=== PATIENT | female | born 1995 | race Caucasian/White ===

== ENCOUNTER → 2016-10-08 | Outpatient (REF) | payer BC | LOC: M WUC 17:08 | PROVIDERS: ATTEND Physician Assistant | DX: J02.9 Acute pharyngitis, unspecified (principal) ==

== ENCOUNTER → 2016-12-21 | Outpatient (REF) | payer BC ==
[2016-12-21 12:24] LABS: ALKALINE PHOSPHATASE 82 U/L (45-117); ALT/SGPT 19 U/L (12-78); ANION GAP 7 MEQ/L (8-16); AST/SGOT 18 U/L (15-37); BILIRUBIN,TOTAL 0.3 MG/DL (0.2-1.0); BLOOD UREA NITROGEN 15 MG/DL (7-18); CALCIUM LEVEL 8.9 MG/DL (8.5-10.1); CARBON DIOXIDE LEVEL 27 MEQ/L (21-32); CHLORIDE LEVEL 104 MEQ/L (98-107); CHOLESTEROL LEVEL 185 MG/DL (<200); CREATININE FOR GFR 0.74 MG/DL (0.55-1.02); GLOMERULAR FILTRATION RATE > 60.0 (>60); GLUCOSE, FASTING 90 MG/DL (70-105); POTASSIUM SERUM 4.3 MEQ/L (3.5-5.1); SODIUM LEVEL 138 MEQ/L (136-145); TRIGLYCERIDES LEVEL 65 MG/DL (<150)
[2016-12-21 12:25] LABS: ALBUMIN/GLOBULIN RATIO 1.18 (1.00-1.93); TOTAL PROTEIN 7.4 GM/DL (6.4-8.2)
[2016-12-21 12:52] LABS: MEAN CORPUSCULAR HEMOGLOBIN 28.7 pg (27.0-33.0); MEAN CORPUSCULAR HGB CONC 31.9 g/dl (32.0-36.5); MEAN CORPUSCULAR VOLUME 89.9 fl (80.0-96.0); WHITE BLOOD COUNT 6.1 K/mm3 (4.0-10.0)
== END ==
LOC: M SFHCPLAZ 07:39
PROVIDERS: ATTEND Nurse Practitioner Adult Health
DX: Z00.00 Encounter for general adult medical examination without abnormal findings (principal)

== ENCOUNTER → 2019-07-07 | Outpatient (CLI) | payer BC ==
[2019-07-07 15:25] LABS: BASO % 0.3 % (0.0-1.0); EOS # 0.1 10^3/uL (0.0-0.5); HEMATOCRIT 39.3 % (36.0-47.0); HEMOGLOBIN 12.6 g/dl (12.0-15.5); LYMPH # 2.3 10^3/uL (1.5-5.0); LYMPH % 39.5 % (24.0-44.0); MEAN CORPUSCULAR HEMOGLOBIN 26.8 pg (27.0-33.0); MEAN CORPUSCULAR HGB CONC 32.1 g/dl (32.0-36.5); MEAN CORPUSCULAR VOLUME 83.4 fl (80.0-96.0); MONO # 0.6 10^3/uL (0.0-0.8); MONO % 10.3 % (0.0-5.0); NEUTROPHILS # 2.8 10^3/uL (1.5-8.5); NEUTROPHILS % 47.9 % (36.0-66.0); PLATELET COUNT, AUTOMATED 296 10^3/uL (150-450); RED BLOOD COUNT 4.71 10^6/uL (4.00-5.40); WHITE BLOOD COUNT 5.9 10^3/uL (4.0-10.0)
[2019-07-07 15:26] LABS: HEMATOCRIT 39.3 % (36.0-47.0)
[2019-07-07 15:39] LABS: HEMOGLOBIN A1c 5.4 %
[2019-07-07 15:44] LABS: ALBUMIN 3.9 GM/DL (3.2-5.2); ALT/SGPT 19 U/L (12-78); BILIRUBIN,TOTAL 0.4 MG/DL (0.2-1.0); BLOOD UREA NITROGEN 10 MG/DL (7-18); CALCIUM LEVEL 9.4 MG/DL (8.5-10.1); CARBON DIOXIDE LEVEL 27 MEQ/L (21-32); CHLORIDE LEVEL 101 MEQ/L (98-107); CREATININE FOR GFR 0.66 MG/DL (0.55-1.30); FERRITIN 33 NG/ML (8-252); GLOMERULAR FILTRATION RATE > 60.0 (>60); GLUCOSE, FASTING 79 MG/DL (70-100); IRON (FE) 29 UG/DL (50-170); MAGNESIUM LEVEL 1.9 MG/DL (1.8-2.4); PHOSPHORUS LEVEL 2.8 MG/DL (2.5-4.9); POTASSIUM SERUM 3.4 MEQ/L (3.5-5.1); SODIUM LEVEL 139 MEQ/L (136-145); TOTAL IRON BINDING CAPACITY 291 UG/DL (250-450); TOTAL PROTEIN 7.4 GM/DL (6.4-8.2)
[2019-07-07 15:52] LABS: TOTAL 25(OH) VITAMIN D 25.8 NG/ML (30.0-100.0); VITAMIN B12 LEVEL 1378 PG/ML (247-911)
== END ==
LOC: M LAB 13:58
PROVIDERS: ATTEND Surgery
DX: K91.2 Postsurgical malabsorption, not elsewhere classified (principal); E55.9 Vitamin D deficiency, unspecified; Z98.84 Bariatric surgery status

== ENCOUNTER → 2019-12-02 | Outpatient (REF) | payer BC ==
[2019-12-02 09:32] LABS: BASO % 0.5 % (0.0-1.0); EOS # 0.1 10^3/uL (0.0-0.5); EOS % 1.7 % (0.0-3.0); HEMATOCRIT 41.7 % (36.0-47.0); HEMOGLOBIN 13.5 g/dl (12.0-15.5); LYMPH # 1.8 10^3/uL (1.5-5.0); LYMPH % 30.5 % (24.0-44.0); MEAN CORPUSCULAR HGB CONC 32.4 g/dl (32.0-36.5); MEAN CORPUSCULAR VOLUME 89.7 fl (80.0-96.0); MONO # 0.4 10^3/uL (0.0-0.8); MONO % 7.4 % (0.0-5.0); NEUTROPHILS # 3.6 10^3/uL (1.5-8.5); NEUTROPHILS % 59.7 % (36.0-66.0); PLATELET COUNT, AUTOMATED 354 10^3/uL (150-450); RED BLOOD COUNT 4.65 10^6/uL (4.00-5.40); WHITE BLOOD COUNT 5.9 10^3/uL (4.0-10.0)
[2019-12-02 09:47] LABS: ALT/SGPT 20 U/L (12-78); BILIRUBIN,TOTAL 0.7 MG/DL (0.2-1.0); BLOOD UREA NITROGEN 9 MG/DL (7-18); CALCIUM LEVEL 8.9 MG/DL (8.5-10.1); CARBON DIOXIDE LEVEL 28 MEQ/L (21-32); CHLORIDE LEVEL 107 MEQ/L (98-107); FERRITIN 29 NG/ML (8-252); GLOMERULAR FILTRATION RATE > 60.0 (>60); GLUCOSE, FASTING 90 MG/DL (70-100); IRON (FE) 103 UG/DL (50-170); MAGNESIUM LEVEL 2.2 MG/DL (1.8-2.4); PERCENT SATURATION 32.4 % (13.2-45.0); PHOSPHORUS LEVEL 3.8 MG/DL (2.5-4.9); POTASSIUM SERUM 3.7 MEQ/L (3.5-5.1); SODIUM LEVEL 140 MEQ/L (136-145); TOTAL IRON BINDING CAPACITY 318 UG/DL (250-450)
[2019-12-02 10:38] LABS: HEMOGLOBIN A1c 5.1 %
[2019-12-02 11:13] LABS: HEMATOCRIT 41.7 % (36.0-47.0)
[2019-12-02 11:41] LABS: TOTAL 25(OH) VITAMIN D 71.4 NG/ML (30.0-100.0)
[2019-12-02 11:42] LABS: VITAMIN B12 LEVEL 1728 PG/ML (247-911)
== END ==
LOC: M LAB REF 09:07
PROVIDERS: ATTEND Surgery
DX: K91.2 Postsurgical malabsorption, not elsewhere classified (principal); Z98.84 Bariatric surgery status; E55.9 Vitamin D deficiency, unspecified

== ENCOUNTER → 2023-08-20 | Outpatient (CLI) | payer BC | LOC: M CARPUL 11:06 | PROVIDERS: ATTEND Internal Medicine Pulmonary Disease | DX: C50.912 Malignant neoplasm of unspecified site of left female breast (principal) ==

== ENCOUNTER → 2023-11-15 | Outpatient (CLI) | payer BC ==
[~2023-11-15] MED LIST: BUPR1TAB52 PO; FEXO-13 PO; FLINTSTONE VITAMINS PO; LIDO30CR18 TOP; OMEP10CASR PO; ONDA8TAB8 PO; PROC10TA5 PO; VITA1CAP25 PO; [UNRECOGNIZED DRUG - CODE] SC
== END ==
LOC: M EKG 08:44
PROVIDERS: ATTEND Specialist
DX: R00.2 Palpitations (principal)

== ENCOUNTER → 2025-02-09 | Outpatient (CLI) | payer BC ==
[~2025-02-09] MED LIST changes: +ALLE180T33 PO; +AMOX875T2; +BUPR-670 PO; -BUPR1TAB52 PO; +CEFD1CAP9 PO; +CIPR500T39; +CLAR1TAB13 PO; +FLUC150T9; +LEXA1TAB PO; +LEXA1TAB2 PO; +METH-1164; +ONDA-284 PO; -ONDA8TAB8 PO; +PROBCAP14 PO
== END ==
LOC: M WHC 09:28
PROVIDERS: ATTEND Nurse Practitioner Women's Health
DX: Z85.3 Personal history of malignant neoplasm of breast (principal); M85.852 Other specified disorders of bone density and structure, left thigh

== ENCOUNTER → 2025-02-09 | Outpatient (CLI) | payer BC | LOC: M PLAIMG 09:29 | PROVIDERS: ATTEND Nurse Practitioner Women's Health | DX: Z85.3 Personal history of malignant neoplasm of breast (principal); M85.852 Other specified disorders of bone density and structure, left thigh ==